=== PATIENT | male | born 1980 | race Caucasian/White ===

== ENCOUNTER → 2020-08-15 07:27 | Outpatient (REF) | payer MEDICARE, MEDICAID, SELFPAY ==
--- NOTE | 2020-08-15 07:38 | CA_ITS ---
Transthoracic Echocardiogram Patient (Last, First, Middle): Godfrey Velasquez, Gender: Male Date of : 1980 Age: 40 Procedure Date: 08/15/2020 Procedure Type: Transthoracic Echocardiogram Location: OP Height: 167.64 cm Weight: 148.78 kg BSA: 2.47 m2 Heart Rate: bpm BP: 138 / 80 mmHg Architectural Associate: LAYLA Referring MD: Osvaldo Barnett MD [employer] Weaver: Winston Velazquez MD Symptoms: DYSPNEA UPON EXERTION Study Quality: Fair ECG Rhythm: Sinus Conclusions: - 1. Mildly reduced LV systolic function with regional wall motion abnormality with impaired relaxation filling pattern 2. Mildly dilated left atrium 3. Normal cardiac valvular Dopplers 4. Normal RV systolic pressure 5. No pericardial effusion Findings Procedure Information Contrast agent, definity, is being given per protocol without apparent complications. Left Ventricle Normal left ventricular cavity size. There is mildly increased left ventricular wall thickness. The left ventricular systolic function is mildly decreased. The visually estimated ejection fraction is between 45-50%. Spectral Doppler is indicative of an impaired relaxation filling pattern. E/E prime ratio is between 8 and 15 consistent with indeterminate filling pressures. Right Ventricle Normal right ventricular cavity size and systolic function. Atria The left atrium is mildly dilated. There is no evidence of interatrial shunt. The right atrium is normal in size. Aortic Valve Normal aortic valve structure and function. There is no aortic valve stenosis. There is no aortic valve regurgitation. Mitral Valve There is mild anterior and posterior mitral leaflet thickening. There is trace mitral valve regurgitation. There is no mitral valve stenosis. Pulmonic Valve The pulmonic valve was not well visualized. Tricuspid Valve Normal tricuspid valve structure. There is mild tricuspid valve regurgitation. The right ventricular systolic pressure is 33 mmHg. Normal right atrial pressure. There is no evidence of pulmonary hypertension. Great Vessels All visible segments of the aorta are normal in size. The pulmonary artery was not well visualized. Venous The inferior vena cava is normal in size and collapses greater than 50% with inspiration. Pericardium/Pleural There is no evidence of pericardial effusion. Prior Study Comparison No prior study available for comparison. Measurements 2D Linear Measurements IVSd: 1.42 0.6-0.9/0.6-1.0 cm LVIDd: 5.46 3.9-5.3/4.2-5.9 cm LVIDd Index: 2.21 2.4-3.2/2.2-3.1 cm/m2 LVIDs: 3.62 2.0-3.6 cm LVPWd: 1.40 0.7-1.1 cm Ao Root: 3.20 2.1-3.5 cm LA Diam: 4.30 2.7-3.8/3.0-4.0 cm LAIDs Index: 1.74 1.5-2.3 cm/m2 LV Mass: 421.09 67-162/88-224 g LV Mass Index: 170.48 43-95/49-115 g/m2 LVOT Diam: 2.20 3.0+(-)1.3 cm 2D Systolic Function EF 4C: 47.00 >55% EF 2C: 44.30 >55% EF BiP: 44.70 >55% Mitral Valve MV Pk E: 0.89 MV PK A: 0.63 MV Decel Time: 143.00 E/A: 1.40 E'Lateral: 8.92 E'Medial: 7.51 E/E' Med: 11.90 E/E' Lat: 10.00 PHT: 42.00 MVA PHT: 5.24 Decel Ray: 6.21 Aortic Valve AoV Pk Juarez: 1.40 AoV Mn Juarez: 1.01 AoV VTI: 0.32 AoV Pk Grad: 8.00 Aov Mn Grad: 5.00 DALTON Cont.VTI: 2.77 LVOT LVOT Pk Juarez: 1.01 LVOT Mn Juarez: 0.74 LVOT VTI: 0.24 LVOT Pk Grad: 4.00 LVOT Mn Grad: 2.00 LVOT Diam: 2.20 LVOT Area: 3.80 Diastolic Function MV Pk E: 0.89 MV Pk A: 0.63 E/A: 1.40 E'Medial: 7.51 E/E' Med: 11.90 E' Laterial: 8.92 E/E' Lat: 10.00 Tricuspid Valve TR Pk Juarez: 2.74 TR Pk Grad: 30.00 RA Press: 3.00 RVSP: 33.00 Great Vessels Aorta Ao Root-2D: 3.20 2.0-3.7 cm Pulmonary Valve PV Pk Juarez: 1.05 Peak PV Grad: 4.00 Updated in Other Vendor System with Status of Final Winston Velazquez MD electronically signed on 08/15/2020 1:31:20 PM with status of Final
== END ==
LOC: HO.CARD 07:27
PROVIDERS: PCP Family Medicine; Visit Provider Surgery
DX: Z01.818 Encounter for other preprocedural examination (principal); I10 Essential (primary) hypertension
CPT/HCPCS: 93306; Q9957

== ENCOUNTER → 2020-09-09 09:33 | Outpatient (REF) | payer MEDICARE, MEDICAID, SELFPAY ==
--- NOTE | 2020-09-09 | NM_ITS ---
Myocardial perfusion study Indication: Preoperative cardiovascular risk stratification 2 evaluate for myocardial ischemia Technique: The patient was brought in for a Lexiscan perfusion study on 09/09/2020. Patient performed low-level exercise and was injected 0.4 mg of Lexiscan intravenously. Within a minute of injection, 45 mCi of sestamibi was given intravenously. Images were obtained using the SPECT gamma camera interlaced with the gating device. Images were obtained in supine position. Resting perfusion study was performed on 09/10/2020. Patient was administered 45 mCi of sestamibi intravenously at rest. Images were then obtained in supine position. Images obtained with and without CT attenuation. Total DLP 171 mgy-cm Images were processed with the software and compared side to side in short axis, horizontal long axis and vertical long axis views. Findings: The stress perfusion study showed non attenuated images show moderately reduced uptake in the anterolateral, lateral and inferolateral wall of the LV myocardium. There is also moderately reduced uptake in the basal inferior wall of the LV myocardium. Attenuation corrected images show mildly reduced uptake in the distal lateral as well as basal anterior mid anterior wall of the LV myocardium.. The gated study shows abnormal LV systolic function with calculated LVEF of 46%. LV cavity is mildly dilated size. The gated study shows diffuse mildly reduced wall thickening and contraction of all segments. Resting study shows non attenuated images show normal canal reduced uptake in the anterolateral, lateral and inferolateral wall of the LV myocardium as well as moderately reduced uptake in the basal inferior wall of the LV myocardium.. Gating at rest reveals diffuse wall motion abnormality with ejection fraction at 46%. The findings are consistent with no clear reversible defect suggestive of ischemia. Fixed lateral wall defect, could represent soft tissue. Nontransmural myocardial infarction cannot be entirely ruled out.. NM/NM diana perf SPECT rest & str Impression: 1. Myocardial perfusion imaging study shows no evidence of ischemia with fixed lateral defect could suggest soft tissue attenuation 2. Gated LVEF is 46% 3. Transient ischemic dilatation not present but LV cavity is dilated EKG is nondiagnostic for ischemia
--- NOTE | 2020-09-09 09:45 | CA_ITS ---
Acquisition Time: 2020-09-09 09:44:37 Total Exercise Time: 00:02:00 Test Indications: Screening for CAD Medications: Protocol: LEXISCAN Max HR: 121 BPM 67% of Pred: 179 BPM Max BP: 144/084 mmHG Max Work Load: 1.0 METS Pharmacological stress test using using Lexiscan while sitting and kicking his feet. Pt tolerated well, denies any anginal sx. EKG with isolated PVC, non-diagnostic for ischemia. Nuclear images to follow. Normotensiver esponse to test. Test reviewed with Dr. Velazquez. Referred By: Osvaldo Barnett Overread By: Surendra Armando
== END ==
LOC: HO.CARD 09:33
PROVIDERS: Visit Provider Surgery
DX: Z01.818 Encounter for other preprocedural examination (principal); I11.9 Hypertensive heart disease without heart failure; R06.02 Shortness of breath; R93.1 Abnormal findings on diagnostic imaging of heart and coronary circulation; G47.30 Sleep apnea, unspecified
CPT/HCPCS: 78452; 93017; A9500; J0280; J2785

== ENCOUNTER 2020-09-12 08:35 | Outpatient (REF) | payer MEDICARE, MEDICAID, SELFPAY ==
[2020-09-13 11:27] LABS: H Pylori Breath Test NOT DETECTED (NOT DETECTED)
== END 2020-09-12 08:36 | disposition home or self-care (01) ==
LOC: HO.LNP 08:35
PROVIDERS: PCP Family Medicine; Referring Provider Family Medicine; Visit Provider Physician Assistant
DX: Z01.818 Encounter for other preprocedural examination (principal); A04.8 Other specified bacterial intestinal infections
CPT/HCPCS: 83013

== ENCOUNTER → 2020-09-17 07:44 | Outpatient (BNVA) | payer MEDICARE, MEDICAID, SELFPAY | PROVIDERS: PCP Family Medicine; Referring Provider Family Medicine; Visit Provider Surgery | DX: E66.01 Morbid (severe) obesity due to excess calories (principal) | CPT/HCPCS: Q3014 ==

== ENCOUNTER → 2020-09-24 08:26 | Outpatient (BNVA) | payer MEDICARE, MEDICAID, SELFPAY | PROVIDERS: PCP Family Medicine; Referring Provider Family Medicine; Visit Provider Dietitian, Registered | DX: Z76.89 Persons encountering health services in other specified circumstances (principal) ==